=== PATIENT | male | born 1930 | race Caucasian/White ===

== ENCOUNTER 2017-06-22 12:00 | Inpatient (IN) | payer MEDICARE, OTHER ==
[~2017-06-22] VITALS: Ht 172.7 cm; Wt 104.7 kg
--- NOTE | ~2017-06-22 | HP ---
PATIENT'S NAME: ALINA RAMIREZ [facility] AGE: 86 Y [address] ROOM: [place] [address] LOCATION: GPCU ADMIT DATE: 06/22/2017 History & Physical DISCHARGE DATE: FAMILY PHYSICIAN: SANDRA GARZA ATTENDING PHYSICIAN: Chan Bowman DATE OF SERVICE: CHIEF COMPLAINT: Sepsis and acute kidney injury. HISTORY OF PRESENTING ILLNESS: This 86-year-old, white male with previous history of bladder cancer status post resection and ileal conduit, was sent to [facility] from the clinic in [place] today with newly identified renal insufficiency. He states he has felt unwell since Thursday. He had developed some sharp left- sided flank and abdominal pain. This persisted over the course of the weekend, and he subsequently developed some increasing abdominal bloating and nausea. Last evening, he was unable to keep anything down. Today and with the assistance of his daughter, he went to the clinic in [place]. Some laboratory workup while he was there revealed an elevated white blood cell count of 16.9 as well as elevated BUN and creatinine at 77 and 3.1. Because of the concern for impending renal failure, he was transferred here for definitive evaluation and management. On his arrival, he complains of left-sided flank and abdominal pain. He feels bloated, but he has been having small frequent stools. He characterizes these as loose and dark in color. He complains of intermittent fevers, chills, and sweats. He admits that he has not actually taken his temperature. He denies headache, but does complain of feeling dizzy and weak. He has not fallen. He denies any significant chest pains. He does get short of breath particularly with exertion. He does not void per urethra, but does produce significant amounts of urine through the ileal conduit. He denies blurred vision or double vision. No body rash. No numbness, tingling, or weakness in his extremities. PAST MEDICAL HISTORY: ALLERGIES: SULFA. ILLNESSES: 1. Coronary artery disease status post PTCA with stenting in 2000. PATIENT'S NAME: ALINA RAMIREZ [facility] AGE: 86 Y [address] ROOM: [place] [address] LOCATION: GPCU ADMIT DATE: 06/22/2017 History & Physical DISCHARGE DATE: FAMILY PHYSICIAN: SANDRA GARZA ATTENDING PHYSICIAN: Chan Bowman 2. Diabetes mellitus, type 2. 3. Chronic kidney disease, stage 3. 4. Bladder cancer status post resection with ileal conduit. 5. Essential hypertension. 6. Hyperlipidemia. 7. Diabetic peripheral neuropathy. 8. Gastroesophageal reflux disease. 9. Osteoarthritis, generalized. CURRENT MEDICATIONS: 1. Aspirin 325 mg p.o. q. day. 2. Carvedilol 6.25 mg p.o. b.i.d. 3. Os-Arvind with D 1000 mg p.o. q.a.m. 4. Benadryl 25 mg p.o. q. day p.r.n. 5. Cardura 8 mg p.o. q. day. 6. Gabapentin 600 mg p.o. q.a.m., 900 mg p.o. q.p.m. 7. Amaryl 4 mg p.o. q.a.m. 8. Vallejo 5/325, 1 tablet p.o. q.4 hours p.r.n. pain. 9. Lisinopril 20 mg p.o. q. day. 10. Claritin 10 mg p.o. q. day. 11. Metformin 1000 mg p.o. b.i.d. 12. Multivitamin daily. 13. Nitroglycerin p.r.n. 14. Zantac 150 mg p.o. b.i.d. 15. Disalcid 750 mg p.o. b.i.d. 16. Zocor 20 mg p.o. q. day. FAMILY HISTORY: Significant for stroke in both his mother and father. Father in his 70s and mother in her 90s. SOCIAL HISTORY: He is and lives in [place]. He does have a distant past history of smoking tobacco, less than 15 pack years. Has been quit for more than 30 years. No significant alcohol use. REVIEW OF SYSTEMS: As per HPI. All other organ systems reviewed and are negative. PHYSICAL EXAMINATION: VITAL SIGNS: Temperature 100.2, pulse 107, respirations 18, blood pressure 126/82, and O2 saturation 94% on room air. GENERAL: He is frail, mildly ill-appearing, lying in bed, in no acute distress. SKIN: Supple, pale, warm, and dry. No obvious rashes. PATIENT'S NAME: ALINA RAMIREZ [facility] AGE: 86 Y [address] ROOM: [id number] [place], [place] [address] LOCATION: GPCU ADMIT DATE: 06/22/2017 History & Physical DISCHARGE DATE: FAMILY PHYSICIAN: SANDRA GARZA ATTENDING PHYSICIAN: Chan Bowman HEENT: He is otherwise normocephalic. Sclerae nonicteric. Pupils equal, round, and reactive to light and accommodation. Extraocular movements appear intact. Nasal turbinates normal in appearance. Oropharynx is clear. Mucous membranes are pink and moist. Dentition is in poor repair. NECK: Supple. Plethoric. No masses or adenopathy. No thyromegaly. No JVD. CHEST: Wall is symmetrical. HEART: Regular with a grade 1/6 to 2/6 systolic ejection murmur. There are occasional extrasystoles. LUNGS: Diminished at the bases. No crackles or wheezes are heard. ABDOMEN: Soft, rotund, tympanitic. Bowel sounds are present but diminished. He is diffusely tender with some guarding over the left lower quadrant. He has also got exquisite tenderness to palpation over the left flank with some CVA tenderness on that side. The ileostomy is present over the right abdomen without any complicating features. GENITOURINARY: Shows normal male external genitalia. RECTAL: Not performed. EXTREMITIES: Display 1+ pitting edema. No cyanosis. NEUROLOGIC: Mentation is slowed. He is a little hard of hearing, but there are no focal deficits. LABORATORY DATA AND IMAGING STUDIES: Laboratory and x-ray data from [place]; CBC showed a white blood cell count of 16.9, hemoglobin of 11.1, and platelets were 145,000. Chemistries revealed BUN and creatinine of 77 and 3.1 respectively. GFR of 17. Sodium and potassium of 140 and 4.8 respectively, chloride and CO2 of 108 and 28, and glucose was 247. ASSESSMENT AND PLAN: 1. Sepsis. We will admit to inpatient care. The focus is not clear, but possibly intra-abdominal. Consider urinary source. We will get blood cultures and initiate broad-spectrum antibiotic therapy. I placed him on the sepsis pathway. He is currently hemodynamically stable. We will watch his fluid volume balance closely and administer the fluid bolus according to the pathway and guidelines. We will plan to get CT scan of the abdomen and pelvis with oral contrast only and follow up on that when the results are known. 2. Acute kidney injury in the setting of chronic kidney disease, stage 3. He appears to be mildly prerenal. We will proceed with IV fluid bolus per the sepsis pathway. We will follow his fluid volume balance closely and await CT scan image findings. Depending on his clinical progress, we will consider Nephrology evaluation as well. 3. Coronary artery disease. Clinically, he is asymptomatic and stable. We will plan to continue with aspirin therapy and statin therapy as well as beta-dana therapy. 4. Diabetes mellitus, type 2. Historically controlled. We will hold the PATIENT'S NAME: ALINA RAMIREZ [facility] AGE: 86 Y [address] ROOM: [place] [address] LOCATION: [facility] ADMIT DATE: 06/22/2017 History & Physical DISCHARGE DATE: FAMILY PHYSICIAN: SANDRA GARZA ATTENDING PHYSICIAN: Chan Bowman oral hypoglycemic regimen and plan to continue with insulin therapy. 5. Bladder cancer status post radical cystoprostatectomy and ileal conduit. The conduit appears to be functioning normally. We will contact Dr. Jasmine to allow him to follow the patient while he is here. We will await imaging findings as outlined above. 6. Essential hypertension. Currently controlled. We will hold CAITIE inhibitor therapy and follow his blood pressure trend. 7. Diabetic peripheral neuropathy. Continue with symptomatic measures. 8. Deep venous thrombosis prophylaxis. We will use low-dose subcutaneous heparin, pneumatic compression devices, and mobilize him as soon as he is physically able. MD LUIS SHUKLA/david /[id number] D: [id number] T: [id number] HISTORY & PHYSICAL
--- NOTE | ~2017-06-22 | CON ---
PATIENT'S NAME: PONCE RAMIREZ [facility] AGE: 86 Y [address] ROOM: [address] [address] LOCATION: GPCU ADMIT DATE: 06/22/2017 Consultation DISCHARGE DATE: FAMILY PHYSICIAN: SANDRA GARZA ATTENDING PHYSICIAN: Chan Bowman DATE OF CONSULTATION: 06/23/2017 REFERRING PHYSICIAN: Dillon Jasmine MD CONSULTING PHYSICIAN: Chan Bowman M.D. HISTORY OF PRESENT ILLNESS: Ponce was admitted with possible urosepsis. He was found to have an acute change in his renal function and elevated white count to 16.9. He was having left-sided flank pain. He was transferred to Dr. Bowman's care. I had last seen him approximately 3 months ago. He has a known history of prostate and bladder cancer. He has chronic left hydronephrosis. He has occasional left flank and abdominal pain. 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 Fortunately, he is feeling better today. With the question of urosepsis and a known obstructed left renal unit, Dr. Bowman and I talked about the possibility of percutaneous drainage. We have discussed that at length with the patient and family in the past. Because he has been relatively asymptomatic, he is 86 years old, and his renal function has been adequate, we have opted not to intervene. We may need to at this point. However, as noted, he is feeling much better today. He is actually having no pain. He is afebrile. His white count is down to 9.3, however, his creatinine remains 3.0. He gets this pain "about once a month." Sometimes he put a heating pad on and take a pain pill, that usually takes care of it. It has not been a persistent or consistent symptom. He has had a CT scan, it is noncontrast. However, in comparison, it looks like it is the CT from January [address] from February 2016, there has not been any significant change. On examination, his abdomen is soft. His stoma is healthy. He has his hernia as previous. He says he occasionally gets constipated, but he is doing pretty well from a GI standpoint. The urine in his bag is cloudy. We have blood and urine cultures pending. At presentation, we felt that our hand may be forced and we may need to drain the left kidney and consider intervention. Based on how he looks and feels PATIENT'S NAME: PONCE RAMIREZ [facility] AGE: 86 Y [address] ROOM: [id number] [place], [place] [address] LOCATION[facility] ADMIT DATE: 06/22/2017 Consultation DISCHARGE DATE: FAMILY PHYSICIAN: SANDRA GARZA ATTENDING PHYSICIAN: Chan Bowman today, we may want to consider just continuing the current and following him expectantly. We will await the cultures. I will discuss the situation with Dr. Bowman and the Hospitalist Service as well as Ponce's son. IMPRESSION: 1. History of bladder cancer. 2. History of prostate cancer. 3. Left hydronephrosis. 4. Urinary tract infection versus urosepsis with pyelonephritis (unlikely). 5. Left flank and abdominal pain. PLAN: As above. Thank you for the consultation. MD CARLOS TY/david /[id number] CC: CHRISTINA Canas d: 06/23/17 1901 t: 06/30/17 1252, CONSULTATION REPORT
--- NOTE | ~2017-06-22 | DS ---
PATIENT'S NAME: ALINA RAMIREZ [facility] AGE: 86 Y [address] ROOM: [id number] [place], [place] [address] LOCATION: GPCU ADMIT DATE: 06/22/2017 Discharge Summary DISCHARGE DATE: 06/25/2017 FAMILY PHYSICIAN: Josee Carmichael ATTENDING PHYSICIAN: Chan Bowman HISTORY OF PRESENT ILLNESS: This is an 86-year-old male with a past medical history of bladder cancer status post resection and has an ileal conduit. He has a past medical history of diabetes mellitus type 2, CKD stage 3 to 4. His baseline creatinine is about 2.9 to 3. He has history of hypertension, hyperlipidemia, diabetic peripheral neuropathy, GERD, and osteoarthritis who was admitted to [facility] for sepsis secondary to pyelonephritis. The patient's initial white count was 16 per H and P. His procalcitonin is elevated at 0.53. He had a CT abdomen without contrast in view of his renal function and it showed a stable left hydronephrosis and hydroureter with left-sided perinephric stranding. The radiologist is uncertain if this can be secondary to possible obstruction or underlying infectious or inflammatory process. In view of his left hydronephrosis and hydroureter, Urology was consulted and they have stated that they would like to contribute a few managements from my standpoint. However, with the perinephric stranding and leukocytosis and possible fever at outside facility, I have elected to treat this is as a suspected pyelonephritis despite the CT abdomen and pelvis done without contrast. His urine culture came back today and is growing multi-colonies, one being gram negative omid. I have confirmed this with Microbiology as E. coli. It is 10,000 to 50,000. He is also growing staph aureus 10,000 to 15,000 and a gram positive cocci that is most likely enterococcus. Again, it is about 10,000 to 50,000. He was initially started with cefepime and his fever, leukocytosis, and left flank has resolved. I am currently pending for urine sensitivity. However, the patient since he is afebrile, asymptomatic, we will change his cefepime to oral Vantin which is the third general cephalosporin to cover the E. coli. He will be started on 200 mg p.o. b.i.d. of Vantin for 14 days total for suspected pyelonephritis. I have asked that his regular PCP follow up with his urine sensitivity that will be resulted on June 26 to possibly further taper the Vantin to possible Ceftin if it is susceptible. He will also need to follow up with his PCP in 1 week. DISCHARGE PHYSICAL EXAMINATION: VITALS: He is afebrile. His heart rate is in the 60s. His respiratory rate is in the 15s. His blood pressure is 120s to 130s/60s. His saturation is 97% on room air. GENERAL: He is alert, awake, oriented. He is in no distress. LUNGS: Clear. It is slightly diminished, but no crackles. No wheezing. HEART: Sounds are regular rate and rhythm. No murmurs or rubs that I can heart. ABDOMEN: Nontender. No guarding. No rigidity. Abdominal sound is normal. PATIENT'S NAME: ALINA RAMIREZ [facility] AGE: 86 Y [address] ROOM: [place] [address] LOCATION: GPCU ADMIT DATE: 06/22/2017 Discharge Summary DISCHARGE DATE: 06/25/2017 FAMILY PHYSICIAN: Josee Carmichael ATTENDING PHYSICIAN: Chan Bowman EXTREMITIES: He has no pedal edema. NEUROLOGIC: He is grossly intact. PSYCH: His mood is normal. He is non anxious and he is able to make his own decisions. Of note, Physical Therapy has evaluated him and he is clear from Physical Therapy standpoint to go home without rehab. MD MAMIE MCALLISTER/david /[id number] d: 06/26/17 0418 t: 06/26/17 1543, DISCHARGE SUMMARY
[2017-06-22] MEDS ORDERED: NEURONTIN300 MG PO (14:12)
[2017-06-22] MEDS ORDERED: LANTUS100 UNIT/1 SUB-Q (14:13)
[2017-06-22] MEDS ORDERED: ASPIRIN EC81 MG PO (14:14)
[2017-06-22] MEDS ORDERED: GLIPIZIDE10 MG PO (14:14)
[2017-06-22] MEDS ORDERED: LEVOTHROID (SY25 MCG PO (14:14)
[2017-06-22] MEDS ORDERED: ZANTAC150 MG PO (14:14)
[2017-06-22] MEDS ORDERED: ZOCOR40 MG PO (14:15)
[2017-06-22] MEDS ORDERED: COREG6.25 MG PO (14:15)
[2017-06-22] MEDS ORDERED: CLARITIN10 MG PO (14:15)
[2017-06-22] MEDS ORDERED: TYLENOL ARTHRI650 MG PO (14:16)
[2017-06-22] MEDS ORDERED: HYDROCORTISON-A10 ML OTIC (14:17)
[2017-06-22] MEDS ORDERED: NITROSTAT0.4 MG SL (14:18)
[2017-06-22] MEDS ORDERED: TYLENOL325 MG PO (14:19)
[2017-06-22] MEDS ORDERED: THERAGRAN-M1 TAB PO (14:19)
[2017-06-22] MEDS ORDERED: NORCO 5-325 TA1 EACH PO (14:31)
--- NOTE | 2017-06-22 15:00 | NUR ---
PT is 86 y/o male admit for acute kidney injury for hospitalist. Allergy to sulfa. Red and yellow bracelets on. Hx bladder CA-urostomy present,DM, diabetic neuropathy, CAD,ME,htn,hypercholest,stents,hx hematuria,black stools off and on, left side pain off and on. PT alert and oriented x3. Resides at home by himself. Daughter here from [place] visiting,currently at bedside. GI and to consult. Pt states he hasn't felt well for awhile. His left side and stomach hurt off and on. Thursday his stools became black and tarry as well as Thursday. He called the Dr in [place] Sat night and they recommended he come in Thursday am. Last night his temp went up to 100.2 and N/V accompanied his illness.
[2017-06-22 15:12] LABS: BICARBONATE 16.6 mmol/L (18.0-23.0); PCO2 30 mmHg (35-45); PO2 85 mmHg (80-90)
[2017-06-22 15:31] LABS: INR - (THERAPEUTIC) 1.08 (0.92-1.07); PROTIME 11.4 SECONDS (9.8-11.4)
[2017-06-22 15:38] LABS: ANION GAP 13.6 (10.0-19.0); CALCIUM 8.1 mg/dL (8.5-10.5); CREATININE 3.2 mg/dL (0.6-1.3); POTASSIUM 4.6 mMol/L (3.7-5.1); TOTAL BILIRUBIN 0.4 mg/dL (0.0-1.5); TOTAL PROTEIN 6.8 g/dL (6.0-8.4)
[2017-06-22 18:34] LABS: BILIRUBIN URINE NEGATIVE (NEGATIVE); BLOOD URINE 250 /UL (NEGATIVE); COLOR URINE YELLOW (YELLOW); GLUCOSE URINE NEGATIVE (NEGATIVE); KETONE URINE NEGATIVE (NEGATIVE); LEUKOCYTES URINE 500 /UL (NEGATIVE); NITRITE URINE NEGATIVE (NEGATIVE); PROTEIN URINE 100 mg/dL (NEGATIVE); TURBIDITY URINE 4+ (CLEAR); UROBILINOGEN URINE NORMAL (NORMAL)
[2017-06-22 18:48] LABS: BACTERIA URINE MODERATE (NEGATIVE); WBC URINE FULL FIELD #/HPF (NEGATIVE)
[2017-06-22 18:49] LABS: EPITHELIAL URINE 0-2 #/HPF (NEGATIVE)
[2017-06-22 18:50] LABS: WBC CLUMPS URINE MODERATE (NEGATIVE)
[2017-06-22 18:51] LABS: AMORPHOUS URINE 1+ (NEGATIVE); RBC URINE 20-50 #/HPF (NEGATIVE)
[2017-06-22 20:13] LABS: BICARBONATE 16.3 mmol/L (18.0-23.0); LACTATE 1.2 mEq/L (0.50-1.60); PCO2 31 mmHg (35-45); PO2 86 mmHg (80-90)
--- NOTE | 2017-06-22 20:23 | NUR ---
PATIENT ADMITTED TO PCU. IV ANTIBIOTICS STARTED AFTER OBTAINED IV SITE. PATIENT TO CAT SCAN FOR ABD/PELVIS SCAN W/ ORAL CONTRAST. VSS, SATS MID 90'S ON RA. FAMILY AT BEDSIDE.
--- NOTE | 2017-06-23 00:27 | NUR ---
Significant Event: *RESUMED CARE FROM 1886-8210* A&Ox3, VSS on room air. Transfers with 1PA. Lucas given for pain at HS with relief noted. NS at 100ml/hr with intermittent ABX into left wrist PIV with no complications. Urostomy draining cloudy yellow urine with sediment.
[2017-06-23 04:50] LABS: BASOPHIL % 0.1 %; EOSINOPHIL # 0.1 K/uL (0.0-0.5); EOSINOPHIL % 0.5 %; HEMATOCRIT 28.7 % (33.0-50.0); HEMOGLOBIN 9.2 g/dL (11.0-16.0); IMMATURE GRANULOCYTE % 0.3 %; LYMPHOCYTE # 0.8 K/uL (0.8-4.0); LYMPHOCYTE % 8.8 %; MCH 30.1 pg (27.0-34.0); MCHC 32.1 gm/dL (32.0-36.5); MCV 93.8 fl (83.0-98.0); MONOCYTE # 0.8 K/uL (0.0-1.0); MONOCYTE % 8.2 %; NEUTROPHIL # (ANC) 7.6 K/uL (1.4-9.0); NEUTROPHIL % 82.1 %; NRBC % 0 /100WBC (0-0.00); PLATELET COUNT 117 K/uL (150-450); RBC 3.06 M/uL (3.50-5.50); RDW-CV 14.5 % (11.9-14.6); WBC 9.3 K/uL (4.0-11.0)
[2017-06-23 05:05] LABS: ALBUMIN 2.6 gm/dL (3.5-5.0); ANION GAP 11.2 (10.0-19.0); CALCIUM 7.6 mg/dL (8.5-10.5); PHOSPHORUS 3.1 mg/dL (2.5-4.9); POTASSIUM 4.2 mMol/L (3.7-5.1)
--- NOTE | 2017-06-23 05:51 | NUR ---
Significant Event: PT HAS RESTED IN BED ALL EVENING. OSTOMY APPLIANCE INTACT, WITH CLOUDY URINE PRESENT. AWAITING FOR CONNECTOR TO CHANGE TO HANSON BAG. DENIES ANY C/O PAIN. HAS NOT HAD ANY FEVER. ACCU CHECK AT 2300:210 TREATED WITH 4 UNITS PER SLIDING SCALE. ACCU CHECK THIS AM 86 GIVEN APPLE JUICE. OTHER VITALS WITH IN LIMITS. Follow up: NEED STOOL FOR CULTURE AND C.DIFF IF HAS ANY STOOL. EAR DROPS NOT AVAILABLE IN HOSPITAL. SEPSIS TIME ZERO: 06/22/17 1350
[2017-06-23] MEDS ORDERED: GLUCOTROL10 MG PO (06:37)
[2017-06-23] MEDS ORDERED: ONGLYZA2.5 MG (06:38)
[2017-06-23] MEDS ORDERED: ONGLYZA2.5 MG PO (08:49)
--- NOTE | 2017-06-23 13:13 | NUR ---
Introduced self and care management services to patient. Lives in [place] alone. Working with P.T. Plans on going home on discharge, denies concerns about going home. Says he has neighbors who will help him if he needs anything and he has a son in [place] as well. Denies anticipating needs. Says he lives [place] the [address] from the [facility] in [place] and that they would love to have him but he's not ready for them yet, has been there before for skilled stay. Corporate Counsel will follow and assist with dc planning as needs identified.
--- NOTE | 2017-06-23 16:32 | NUR ---
PATIENT UP TO CHAIR, WORKED WITH PT/OT. URINE CULTURE ORDERED. CHANGED IV ANTIBIOTICS, IV FLUIDS AT 75ML/HR. CHANGED ACCUCHECKS TO ACHS. VSS, SATS MID 90'S ON RA.
--- NOTE | 2017-06-24 04:29 | NUR ---
Patient is A/O. Lung sounds clear on RA. Bowel sounds present. SBA. Left wrist IV running NS at 75ml/hr. Urostomy tube in lower right abdomen had 1600 output. VSS. c/o stiffness/sore in neck, treated with 650mg of Tylenol at 0300. Diabetic diet.
[2017-06-24 04:31] LABS: ALBUMIN 2.3 gm/dL (3.5-5.0); CALCIUM 7.5 mg/dL (8.5-10.5); CREATININE 2.9 mg/dL (0.6-1.3); POTASSIUM 4.6 mMol/L (3.7-5.1); TOTAL PROTEIN 5.9 g/dL (6.0-8.4)
[2017-06-24 04:43] LABS: ANION GAP 13.6 (10.0-19.0); TOTAL BILIRUBIN 0.3 mg/dL (0.0-1.5)
--- NOTE | 2017-06-24 17:22 | NUR ---
Significant event: A&Ox3. VSS. D/C IVF. Metamucil and Colace initiated. Urostomy had 1,270 ml out. Creatine at baseline for patient per Dr. Carballo. Follow Up: awaiting urine culture and sensitivity, to change antibiotics to PO, then patient will be sent home.
--- NOTE | 2017-06-25 04:51 | NUR ---
A/O, VSS, lung sounds clear on RA. Bowel sounds present. SBA. Left wrist SLIV. Urostomy tube in lower right abdomen had 1400 out. c/o stiffness in neck, treated with 1 NORCO at 2030. Awaiting urine culture and sensitivity to change ABX to PO, then patient will be d/c.
[2017-06-25] MEDS ORDERED: [UNRECOGNIZED DRUG - REMARK] PO (12:55)
--- NOTE | 2017-06-25 16:31 | NUR ---
IV discontinued with cath intact. Telemetry D/C. Discharge instructions given to patient and son. Medicaions including new perscriptions discussed and given to son. Diet, activity, medication schedule, and follow-up appoitments all discussed with patient and son. No further questions at this time. Escorted to door by tech via wheelchair. Walker and cane sent with patient.
== END 2017-06-25 16:30 | disposition disaster alternative care site (69) | DRG 872 ==
LOC: GPCU 12:50
PROVIDERS: Nurse Practitioner Family; ADMIT Family Medicine
DX: A41.9 Sepsis, unspecified organism (principal); N17.9 Acute kidney failure, unspecified; E11.22 Type 2 diabetes mellitus with diabetic chronic kidney disease; E11.42 Type 2 diabetes mellitus with diabetic polyneuropathy; N13.30 Unspecified hydronephrosis; I12.9 Hypertensive chronic kidney disease with stage 1 through stage 4 chronic kidney disease, or unspecified chronic kidney disease; N18.3 Chronic kidney disease, stage 3 (moderate); E78.5 Hyperlipidemia, unspecified; I25.10 Atherosclerotic heart disease of native coronary artery without angina pectoris; M15.9 Polyosteoarthritis, unspecified; Z85.46 Personal history of malignant neoplasm of prostate; Z85.51 Personal history of malignant neoplasm of bladder; Z87.19 Personal history of other diseases of the digestive system; Z95.5 Presence of coronary angioplasty implant and graft; Z88.2 Allergy status to sulfonamides; K21.0 Gastro-esophageal reflux disease with esophagitis; Z79.84 Long term (current) use of oral hypoglycemic drugs; Z87.891 Personal history of nicotine dependence
CPT/HCPCS: C9113; J0692; J1644; J1956; J2020; J7030; J7040